=== PATIENT | female | born 1930 | race Caucasian/White ===

== ENCOUNTER 2018-02-18 02:00 | Inpatient (IN) ==
--- NOTE | 2018-02-18 02:49 | XRay Report ---
CLINICAL INFORMATION: Trauma COMPARISON: 08/20/2011 FINDINGS: Borderline cardiomegaly and tortuous thoracic aorta are unchanged. The remaining mediastinum and pulmonary vessels are normal. Lungs are clear. No effusions. IMPRESSION: No acute disease - stable Interpreted and Authenticated by: Efren Amezcua 02/18/18
--- NOTE | 2018-02-18 02:55 | XRay Report ---
CLINICAL INFORMATION: Trauma COMPARISON: 09/04/2008 FINDINGS: Comminuted basicervical fracture of the right hip is moderately impacted medially with varus angulation. The distal femoral diaphyseal fragment is displaced 1 cm anteriorly and medially. Moderate degenerative changes noted in the right hip with chondrocalcinosis in the femoral head cartilage. Left total hip prosthesis remains anatomically aligned without loosening or infection. 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 Mild degenerative changes noted in both SI joints. Moderate L4-5 and L5-S1 degenerative disc disease noted. Soft tissue swelling in the fracture site seen - as expected IMPRESSION: 1. Mildly angulated/displaced basicervical fracture - right hip. 2. Moderate right hip degeneration with chondrocalcinosis the femoral head cartilage. 3. Left total hip prosthesis remains anatomically aligned with heterotopic ossification developing in the extracapsular soft tissues. Interpreted and Authenticated by: Efren Amezcua 02/18/18
--- NOTE | 2018-02-18 02:58 | Emergency Department Note ---
Lower Extremity Injury HPI - General Chief Complaint: Extremity Injury, Lower Stated Complaint: hip pain Time Seen by Provider: 02/18/18 02:23 Source: EMS Mode of arrival: ambulatory Limitations: other - History of Present Illness HPI Narrative: Patient with a history of dementia referred over from the assisted by ambulance due to a fall from out of her bed patient has tenderness to her right hip with external rotation of the leg. Pulses are 2+ equal strong normal sensation distally unable to get a good history from the patient herself.Temperature is 97.9 pulse is 76 respirations are 19 blood pressure 192/ 78 pulse ox is 97% she rates the pain is a 5/10 - Related Data Home Medications Medication Instructions Recorded Confirmed Acetaminophen [Non-Aspirin] 325 mg PO BID 03/05/16 03/05/16 Calcium/D3/Mag Ox/Director Of Instruction/Evan/Zn 1 each PO BID 03/05/16 03/05/16 [Caltrate+D3 Plus Mineral Minis] Diclofenac 2 gm TRANSDERMA QIDP PRN 03/05/16 03/05/16 Donepezil [Aricept] 10 mg PO DAILY 03/05/16 03/05/16 Ergocalciferol (Vitamin D2) 2,000 unit PO DAILY 03/05/16 03/05/16 [Vitamin D2] Glucosamine/Chondro Dhaliwal A [Cvs 1 each PO BID 03/05/16 03/05/16 Glucosamine-Chondroitin Tb] Hydroxychloroquine [Plaquenil] 200 mg PO DAILY 03/05/16 03/05/16 Memantine HCl 10 mg PO BID 03/05/16 03/05/16 Olmesartan Medoxomil [Benicar] 20 mg PO DAILY 03/05/16 03/05/16 Omeprazole 20 mg PO AC 03/05/16 03/05/16 Raloxifene HCl [Evista] 60 mg PO DAILY 03/05/16 03/05/16 traMADol HCL [Ultram] 50 mg PO TID 03/05/16 03/05/16 traZODone HCL [Trazodone HCl] 50 mg PO HS 03/05/16 03/05/16 Previous Rx's Medication Instructions Recorded Ciprofloxacin [Cipro] 500 mg PO BID #15 tablet 03/05/16 Allergies Allergy/AdvReac Type Severity Reaction Status Date / Time Calcitonin [From Miacalcin] AdvReac Verified 09/10/16 10:16 Diclofenac AdvReac Verified 09/10/16 10:16 niacin AdvReac Verified 09/10/16 10:16 piroxicam [From Feldene] AdvReac Verified 09/10/16 10:16 Salsalate [From Disalcid] AdvReac Verified 09/10/16 10:16 sorbitol AdvReac Verified 09/10/16 10:16 Sulfa (Sulfonamide AdvReac Verified 09/10/16 10:16 Antibiotics) Sulindac [From Clinoril] AdvReac Verified 09/10/16 10:16 Review of Systems All systems ED: reviewed and negative except as stated. Constitutional: Denies: fever, chills Musculoskeletal: Reports: as per HPI, joint pain Past Medical History - Past Medical History Medical history: Reports: arthritis, dementia, hyperlipidemia, hypertension, osteoporosis, other (Lumbar spinal stenosis) Surgical history ED: Reports: hip replacement Family history: Reports: non-contributory - Social History smoking status: Former smoker Alcohol use: Reports: None Drug use: Reports: none Physical Exam Limitations: other (Has dementia) Head: atraumatic, normocephalic Eye: Present: normal appearance, PERRL ENT: normal exam, normal oropharynx Neck: Present: normal inspection, full ROM Chest: Present: normal inspection, symmetric chest wall rise. Absent: tenderness Respiratory: Present: normal lung sounds bilaterally. Absent: respiratory distress, rales/crackles, wheezes Cardiovascular: Present: regular rate, normal rhythm. Absent: bradycardia, tachycardia Abdominal: Present: soft, distention. Absent: tenderness, guarding Extremities: Present: normal inspection, full ROM. Absent: tenderness Hip/Pelvis: Present: tenderness, external rotation, shortening Upper leg: Present: normal inspection Knee: Present: normal inspection Lower leg: Present: normal inspection Back: Present: normal inspection, full ROM. Absent: tenderness, CVA tenderness (R), CVA tenderness (L) Neurological: Present: reflexes normal. Absent: motor sensory deficit Psychiatric: Present: normal affect, normal mood Skin: Present: warm, dry, intact Course Vital Signs Temperature 97.9 F 02/18/18 02:00 Pulse Rate 76 02/18/18 02:00 Respiratory Rate 19 02/18/18 02:00 Blood Pressure 192/78 02/18/18 02:00 Pulse Oximetry (%) 97 02/18/18 02:00 Temperature 97.9 F 02/18/18 02:00 Pulse Rate 76 02/18/18 02:00 Respiratory Rate 19 02/18/18 02:00 Blood Pressure 192/78 02/18/18 02:00 Pulse Oximetry (%) 97 02/18/18 02:00 Extremity Injury, Lower - MDM Narrative Medical decision making narrative: X-ray shows a right hip fracture chest x-ray is normal Dr. Estes contacted hospitalist to admit. Dr. Wesley contacted patient admitted - Lab Data Result diagrams: 02/18/18 02:45 02/18/18 02:45 Lab Results 02/18/18 Range/Units 02:45 Band Neutrophils % Not Reportable Disposition Pt seen by SOLID WASTE MANAGEMENT ENGINEER/PA only: No Clinical Impression: Fracture of hip, right, closed Disposition: Xfer As Inpt ([facility]) Condition: Fair Instructions: Hip Sprain (ED), Hip Fracture (ED) Referrals: Lucia Johnson MD [Primary Care Provider] -
[2018-02-18 03:33] LABS: Mean Cell Volume 93.8 fL (80.0-100.0); Mean Corpuscular HGB Conc 33.4 g/dL (31.0-36.0); Mean Corpuscular Hemoglobin 31.3 pg (26.0-34.0); Platelet Count 210 K/mcL (140-440); RBC 3.84 M/mcL (4.00-5.20); Red Cell Distribution Width 13.3 % (11.5-14.5)
[2018-02-18] MEDS ORDERED: ALBUTEROL SULFATE 2.5 MG/3 ML NEBULIZER NEB PRN (03:50)
[2018-02-18] MEDS ORDERED: NALOXONE HCL 0.4 MG/ML VIAL IV PRN ×2 (03:50→16:58)
[2018-02-18] MEDS ORDERED: ACETAMINOPHEN 325 MG TABLET PO PRN ×2 (03:50→17:19)
[2018-02-18] MEDS ORDERED: oxyCODONE HCL 5 MG TABLET PO PRN (03:50)
[2018-02-18] MEDS ORDERED: ONDANSETRON 4 MG/2 ML VIAL IV PRN ×3 (03:50→17:19)
[2018-02-18] MEDS ORDERED: DEXTROSE 5%-1/2NS W/20MEQ KCL 1,000 ML IV SCH (03:50)
[2018-02-18 04:00] LABS: ALT/SGPT 10 U/l (0-40); Albumin 3.6 gm/dL (3.2-5.2); Albumin/Globulin Ratio 1.3 (1.0-2.3); Alkaline Phosphatase 55 U/L (39-117); Blood Urea Nitrogen 23 mg/dl (8-23)
[2018-02-18] MEDS ORDERED: HYDROmorphone 2 MG/ML VIAL ONE (04:08)
[2018-02-18] MEDS: HYDROmorphone 2 MG/ML VIAL IV PRN ×2 (04:11→07:14)
[2018-02-18] MEDS: 0.9 % SODIUM CHLORIDE 10 ML SYRINGE IV SCH ×3 (04:13→22:04)
[2018-02-18 04:30] LABS: Eosinophils % (Manual) 1 % (0-7); Lymphocytes % 10 % (15-49); Monocytes % (Manual) 3 % (1-12); Platelet Estimate NORMAL (NORMAL); RBC Morphology NORMAL (NORMAL); Segmented Neutrophils % 86 % (38-78)
[2018-02-18 05:40] LABS: Appearance,Urine CLEAR; Bacteria,Urine 0 /hpf (0); Bilirubin,Urine NEG (NEG); Color,Urine STRAW; Glucose,Urine (UA) NEGATIVE (NEG); Leukocyte Esterase,Urine 25 /uL (NEG); Protein,Urine NEG (NEG); Specific Gravity,Urine 1.013 (1.000-1.035); Urine Blood NEG mg/dL (<0.03); Urine RBC 0 /hpf (0-1); Urine Squamous Epithelial Cell 0 /hpf (0-4); Urine WBC 0 /hpf (0-4); Urobilinogen,Urine NEG (NEG)
--- NOTE | 2018-02-18 07:46 | Internal Med History&Physical ---
Medical - H&P: [facility] Patient information: Note initiated : 02/18/18 at 7:43 am Service Date, if different from initiated Date: [] Patient: Rabia Asencio a 87 y/o F admitted on 02/18/18 for Hip Pain. Chief Complaint: [] History of present illness: Ms. Asencio is a 87 year old F with h/o dementia, [place] resident, presented to the emergency room from a [facility] after a fall. Patient is demented unable to provide any medical history. Most of the history from chart review. The patient had a mechanical fall from the bed, On presentation to the emergency room patient was hemodynamically stable. X- ray showed a fracture. We are unable to ascertain patient's effort tolerance at this point in time. Based on chart review there is no evidence of congestive heart failure. There is no medications to suggest COPD [no bronchodilators] patient likely. Labs show normal creatinine function, there is no history of diabetes. Plan for surgery today admitted to medical service ROS unobtainable: due to mental status Medical - H&P: PMH Medical history: Medical History Dementia HTN Gerd OA Pertinent family history: unable to review Social history: SNF resident Medical - H&P: Meds Home Medications Medication Instructions Recorded Confirmed Type Acetaminophen [Non-Aspirin] 650 mg PO BID 03/05/16 02/18/18 History Calcium/D3/Mag Ox/Furniture Technician/Evan/Zn 1 each PO BID 03/05/16 02/18/18 History [Caltrate+D3 Plus Mineral Minis] Glucosamine/Chondro Dhaliwal A [Cvs 3 each PO BID 03/05/16 02/18/18 History Glucosamine-Chondroitin Tb] Olmesartan Medoxomil [Benicar] 20 mg PO DAILY 03/05/16 02/18/18 History Raloxifene HCl [Evista] 60 mg PO DAILY 03/05/16 02/18/18 History traMADol HCL [Ultram] 50 mg PO BID 03/05/16 02/18/18 History traZODone HCL [Trazodone HCl] 25 mg PO HS 03/05/16 02/18/18 History Loperamide [Imodium] 2 mg PO PRN PRN 02/18/18 02/18/18 History Memantine HCl/Donepezil HCl 1 cap PO HS 02/18/18 02/18/18 History [Namzaric 21 mg-10 mg Capsule] Propylene Glycol/Peg 400/Pf 1 each OP BID 02/18/18 02/18/18 History [Systane 0.3-0.4% Eye Drops] QUEtiapine [SEROquel] 12.5 mg PO BID 02/18/18 02/18/18 History Ranitidine HCl [Acid Engineering Systems Analyst] 150 mg PO BID 02/18/18 02/18/18 History Vitamin D3 1 capsule PO DAILY 02/18/18 02/18/18 History Allergies Allergy/AdvReac Type Severity Reaction Status Date / Time Calcitonin [From Miacalcin] AdvReac Verified 09/10/16 10:16 Diclofenac AdvReac Verified 09/10/16 10:16 niacin AdvReac Verified 09/10/16 10:16 piroxicam [From Feldene] AdvReac Verified 09/10/16 10:16 Salsalate [From Disalcid] AdvReac Verified 09/10/16 10:16 sorbitol AdvReac Verified 09/10/16 10:16 Sulfa (Sulfonamide AdvReac Verified 09/10/16 10:16 Antibiotics) Sulindac [From Clinoril] AdvReac Verified 09/10/16 10:16 Medical - H&P: Exam - Constitutional Vitals: Temp Pulse Resp BP Pulse Ox 98.8 F 94 H 20 139/72 98 02/18/18 07:05 02/18/18 07:05 02/18/18 07:05 02/18/18 07:05 02/18/18 07:05 Exam: GENERAL: The patient is a well-developed, well-nourished in no apparent distress. Is alert and oriented x1. VITAL SIGNS: Reviewed and as noted elsewhere. HEENT: Head is normocephalic and atraumatic. Extraocular muscles are intact. Pupils are equal 3mm, round, and reactive to light. Nares appeared normal. Mouth appears any without lesions. Mucous membranes are dry. NECK: Normal to inspection, Supple, No lymphadenopathy or thyromegaly. LUNGS: Air entry equal on both sides, no wheezing, crackles or rhonchi noted. No accessory muscles of respiration HEART: Regular rate and rhythm normal, S1 and S2 heard, no Gallop, S3 or Rub Noted, No Gross murmur heard. ABDOMEN: Soft, nontender, and nondistended. Positive bowel sounds. No hepatosplenomegaly was noted. EXTREMITIES: No cyanosis, clubbing, rash, lesions or edema. NEUROLOGIC: Cranial nerves II through XII are grossly intact. Motor and Sensory System Grossly Intact PSYCHIATRIC: Not agitated but is Confused SKIN: No ulceration or wounds noted, No jaundice, No rash noted. Medical - H&P: Reslt - Labs CBC & Chem 7: 02/18/18 02:45 02/18/18 02:45 Labs: Short CBC 02/18/18 Range/Units 02:45 WBC 9.3 (4.5-11.0) K/mcL Hgb 12.0 (12.0-15.0) g/dL Hct 36.0 (36.0-48.0) % Plt Count 210 (140-440) K/mcL BMP 02/18/18 02:45 Sodium 138 Potassium 4.5 Chloride 103 Carbon Dioxide 23 BUN 23 Creatinine 0.9 Glucose 114 H Calcium 9.4 Liver Function 02/18/18 Range/Units 02:45 Total Bilirubin 0.3 (0.0-1.0) mg/dL AST 18 (0-37) U/l ALT 10 (0-40) U/l Alkaline Phosphatase 55 (39-117) U/L Albumin 3.6 (3.2-5.2) gm/dL Urine 02/18/18 Range/Units 04:20 Urine Color Straw Urine Appearance Clear Urine pH 6.0 (5.0-9.0) Ur Specific [place] 1.013 (1.000-1.035) Urine Protein Neg (NEG) mg/dL Urine Glucose (UA) Negative (NEG) mg/dL Medical - H&P: A/P - Narrative A/P Narrative: A/P Hip fracture- Management per surgery HTN- BP stable, resume home meds after surgery, olemsartan to be held today Preop evaluation- Limited history, but based on history and exam, pt remains high risk primary due to age, no modifiable risk factors are noted. Demetia- resume home medications, remains high risk for delirium post op DVT- SCD for now, lovenox post op DNR code status NPO diet. Medical - H&P: Qual - Stroke Symptom Onset Unknown: No - VTE Deep Vein Thrombosis/Pulmonary Embolism Present on Admission: No
[2018-02-18] MEDS: QUEtiapine 25 MG TABLET PO SCH ×2 (08:39→22:03)
--- NOTE | 2018-02-18 08:43 | Consultation ---
DATE OF CONSULTATION: 02/18/2018 HISTORY OF PRESENT ILLNESS: This is a very pleasant elderly female who was born 1930. She presents complaining of significant right lower extremity pain. She is confused on arrival and she was diagnosed by Dr. Rivero as having a right femoral neck fracture, almost down into the intertrochanteric region. The patient is unable to ambulate at the present time, but she was ambulating prior and had a same level fall. The right hip was shortened and externally rotated with good pulses on arrival. The patient's other vital signs were stable. She rated her pain approximately at 5. MEDICATIONS: 1. Acetaminophen 325 mg b.i.d. 2. Calcium with vitamin D, 1 or 2 tablets daily. 3. Diflucan 2 grams q.i.d. 4. Aricept 10 mg p.o. daily. 5. Vitamin D2 2000 units. 6. Glucosamine. 7. Plaquenil 200 mg p.o. daily. 8. Benicar 20 mg p.o. daily. 9. Omeprazole 20 mg p.o. a.c. 10. Evista 60 grams p.o. daily. 11. Ultram, or tramadol 50 mg t.i.d. and tramadol at night. ALLERGIES: SULFA MEDICATIONS, FELDENE, NIACIN, DICLOFENAC, CALCITONIN. REVIEW OF SYSTEMS: Negative for chest pain or shortness of breath. She denies fever or chills. MUSCULOSKELETAL: Reports right hip pain as noted above. PAST MEDICAL HISTORY: Arthritis, dementia, hyperlipidemia, hypertension, osteoporosis and lumbar spinal stenosis. PAST SURGERIES: Left total hip arthroplasty. FAMILY HISTORY: Noncontributory. SOCIAL HISTORY: She is a former smoker, is not currently smoking. She does not use alcohol or other drugs. PHYSICAL EXAMINATION: VITAL SIGNS: All within normal limits. Blood pressure is obviously elevated given her trauma, but temperature is 97.9, respiratory rate 16, pulse rate about 76, saturating at 97%. GENERAL: Very pleasant, demented elderly female who is thin and frail, in no acute distress. Her head is atraumatic. HEAD/NECK: She can move her neck without pain. Neck is nontender. She has false teeth that are not in. Eyes: She moves rise freely without difficulty and no deviation. She seems to hear adequately, and can swallow. LUNGS: She does have normal inspiration and expiration, normal chest wall movement. No rales or rhonchi. Normal lung sounds bilaterally. No distal rales or crackles. CARDIOVASCULAR: Regular rate and rhythm. No murmurs, rubs, or gallops. ABDOMEN: Thin, nontender and non-guarded. No rebound. EXTREMITIES: Right shortened extremity with external rotation of the foot, with no open wounds or lacerations or abrasions. No open skin wounds. Hip/pelvis: She does have pain on the right side when I palpate. There is no rotation or shortening. Knee is present without crepitance. She does not allow me to move the knee obviously. Lower extremity: She does have good capillary refill into the feet. I do not feel great pulses, but there are no open wounds. NEURO: She is moving her toes on both sides without problem. Memory is very poor and she does not even know what happened or where her pain is or which hip she broke. PSYCHIATRIC: Normal, she is demented obviously. LABORATORY STUDIES: She does have fairly normal labs with hematocrit of 35, slight elevated glucose, otherwise within normal limits. IMAGING: X-rays of her right hip demonstrate right low femoral neck fracture that extends slightly into the intertrochanteric region. It appears she has obvious osteoporosis, shortening of the right leg is quite evident with mild significant arthritis of the hip joint. She has a positioned total hip arthroplasty on her left side without fracture, trauma or dislocation. DIAGNOSIS: Right femoral neck fracture. PLAN: Treatment will be a cemented hemiarthroplasty given her age and mental conditions. RBH:tavo Job ID: [id number] Doc ID: [id number] Eran Tejada MD
[2018-02-18] MEDS ORDERED: HEPARIN 5,000 UNIT/ML VIAL SQ SCH (09:00)
[2018-02-18] MEDS ORDERED: ceFAZolin 1 GM VIAL IV SCH (15:45)
[2018-02-18] MEDS ORDERED: 0.9 % SODIUM CHLORIDE 9 ML, KETOROLAC 30 MG, ROPIVACAINE HCL/PF 49.5 ML, EPINEPHrine 0.... IJ ONE (16:44)
[2018-02-18] MEDS ORDERED: IPRATROPIUM/ALBUTEROL 3 ML AMPUL.NEB NEB PRN (16:58)
[2018-02-18] MEDS ORDERED: BENZOCAINE/MENTHOL 1 LOZENGE PO PRN ×2 (16:58→17:19)
[2018-02-18] MEDS ORDERED: FLUMAZENIL 0.1 MG/ML ML IV PRN (16:58)
[2018-02-18] MEDS ORDERED: ACETAMINOPHEN 850 MG/85 ML BOTTLE IV ONE (16:58)
[2018-02-18] MEDS ORDERED: fentaNYL 100 MCG/2 ML VIAL IV PRN (16:58)
[2018-02-18] MEDS ORDERED: LACTATED RINGERS 250 ML IV PRN (16:58)
[2018-02-18] MEDS ORDERED: METHOCARBAMOL 1,000 MG/10 ML VIAL IV PRN (16:58)
[2018-02-18] MEDS ORDERED: GENTAMICIN SULFATE 800 MG/20 ML VIAL IR ONE (17:10)
[2018-02-18] MEDS ORDERED: KETOROLAC 15 MG/ML VIAL IV PRN (17:19)
[2018-02-18] MEDS ORDERED: TEMAZEPAM 15 MG CAPSULE PO PRN (17:19)
[2018-02-18] MEDS ORDERED: TRANEXAMIC ACID 1,000 MG/10 ML VIAL IV SCH (17:19)
[2018-02-18] MEDS ORDERED: POLYETHYLENE GLYCOL 3350 17 GM PACKET PO PRN (17:19)
[2018-02-18] MEDS ORDERED: FLEETS ADULT ENEMA PR PRN (17:19)
[2018-02-18] MEDS ORDERED: HYDROmorphone 2 MG/ML VIAL IV PRN (17:19)
[2018-02-18] MEDS ORDERED: BISACODYL 10 MG SUPP.RECT PR PRN (17:19)
[2018-02-18] MEDS ORDERED: MAGNESIUM HYDROXIDE 30 ML ORAL.SUSP PO PRN (17:19)
--- NOTE | 2018-02-18 17:19 | Brief Operative Note ---
Date of procedure: 02/18/18 Pre-op diagnosis: right hip fracture intertroch Post-op diagnosis: same Procedure: right hip cemented christopher arthroplasty Grafts/Implants: Yes Anesthesia: GETA Complications: none Surgeon: Eran Tejada Lithographic Press Operator Apprentice: Ben Tan Estimated blood loss (cc): 50 Specimens Removed/Pathology: none sent Condition: stable Disposition: PACU
[2018-02-18] MEDS ORDERED: LOPERAMIDE 2 MG CAPSULE PO PRN (17:25)
--- NOTE | 2018-02-18 18:15 | XRay Report ---
CLINICAL INFORMATION: Postop right hip prostheses following hip fracture COMPARISON: Abdomen x-ray 02/18/2018 FINDINGS: Right hip prostheses anatomically aligned. Older left total hip prostheses is also anatomically aligned with heterotopic ossification in the pericapsular region. Soft tissue swelling seen over the surgical site as expected IMPRESSION: Right hip prostheses in anatomic alignment Interpreted and Authenticated by: Efren Amezcua 02/18/18
[2018-02-18] MEDS: 0.45 % SODIUM CHLORIDE 1,000 ML IV SCH (19:18)
[2018-02-18] MEDS ORDERED: SENNOSIDES 1 TABLET PO SCH (21:00)
[2018-02-18] MEDS ORDERED: Propylene Glycol/Peg 400/Pf [Systane 0.3-0.4% Eye Drops] OU SCH (21:00)
[2018-02-18] MEDS: SENNOSIDES 1 TABLET PO SCH (22:02)
[2018-02-18] MEDS: FAMOTIDINE 20 MG TABLET PO SCH (22:02)
[2018-02-18] MEDS: traZODone HCL 50 MG TABLET PO SCH (22:03)
[2018-02-18] MEDS: ASPIRIN 325 MG ENTERIC COATED TABLET PO SCH (22:03)
[2018-02-18] MEDS: CALCIUM W/VIT D3 500 MG TABLET PO SCH (22:03)
[2018-02-18] MEDS: traMADol 50 MG TABLET PO SCH (22:03)
[2018-02-18] MEDS: DOCUSATE SODIUM 100 MG CAPSULE PO SCH (22:03)
[2018-02-18] MEDS: MEMANTINE HCL PO SCH (22:04)
[2018-02-18] MEDS: DONEPEZIL HCL PO SCH (22:04)
[2018-02-19] MEDS: ceFAZolin 1 GM VIAL IV SCH ×2 (00:18→07:47)
[2018-02-19] MEDS: 0.45 % SODIUM CHLORIDE 1,000 ML IV SCH ×3 (03:49→13:26)
[2018-02-19] MEDS: 0.9 % SODIUM CHLORIDE 10 ML SYRINGE IV SCH ×3 (04:23→20:45)
--- NOTE | 2018-02-19 07:14 | Operative Note ---
DATE OF OPERATION: 02/18/2018 PREOPERATIVE DIAGNOSIS: Right intertrochanteric hip fracture. POSTOPERATIVE DIAGNOSIS: Right intertrochanteric hip fracture. PROCEDURE: Right hip fracture open reduction and internal fixation with a cemented stem. SURGEON: Eran Tejada MD MEAT CUTTER APPRENTICE: Ben Tan PA-C ANESTHESIA: General LMA anesthesia. COMPLICATIONS: None, other than the patient's fracture was much worse than what I had anticipated because of the comminution. ESTIMATED BLOOD LOSS: About 50 mL IMPLANTS: A size 6 cemented stem with a 10 mm distal centralizer, canal restrictor and neutral neck head; size 46 unipolar head with a neutral neck length. DESCRIPTION OF PROCEDURE: The patient was brought to the operating room, put to sleep with general LMA anesthesia. Once asleep, the patient had the right hip sterilely prepped and draped in the usual sterile fashion and was turned into a left lateral position with a Roverto positioner. Once in position, we then placed Ioban over the skin and placed sterile drapes. We made a superior approach to the hip and this was dissected through the fascial layer. Charnley retractor was placed and we released the superior capsule. We dislocated the fracture ball superiorly, but the neck fracture extended to the lesser trochanter. This was cut to get the ball out, but the fragments were still blocking the canal. With this, we then removed much of the neck itself. We then broached up to the size 6 on the stem after the canal finder found the canal. Once all this had been done, we then trialed a size 6 with a neutral neck length. It fit very nicely. Leg lengths seem to be symmetric and equal and very stable to exam. We cemented into place a size 6 stem with a 10 mm distal centralizer and canal restrictor and pressurized the cement. We irrigated thoroughly. We then placed the stem in about 15 to 20 degrees of anteversion. I placed a neutral neck length and a ball. It was very stable up to 80 degrees of internal rotation. We then repaired the capsule superiorly after final implants were placed, irrigated and then closed the fascial layer with #1 Stratafix. Skin was closed with Stratafix and adhesive closure. The patient tolerated this well with a sterile bandage. No complication. RBJames:tavo Job ID: [id number] Doc ID: [id number] Eran Tejada MD
[2018-02-19] MEDS: RALOXIFENE HCL 60 MG TABLET PO SCH (07:47)
[2018-02-19] MEDS: DOCUSATE SODIUM 100 MG CAPSULE PO SCH ×2 (07:47→20:44)
[2018-02-19] MEDS: GLUCOSAMINE/CHONDROITIN SULF A 1 CAP CAPSULE PO SCH ×2 (07:48→20:45)
[2018-02-19] MEDS: FAMOTIDINE 20 MG TABLET PO SCH ×2 (07:48→20:43)
[2018-02-19] MEDS: CALCIUM W/VIT D3 500 MG TABLET PO SCH ×2 (07:48→20:43)
[2018-02-19] MEDS: ASPIRIN 325 MG ENTERIC COATED TABLET PO SCH ×2 (07:48→20:43)
[2018-02-19] MEDS: OLMESARTAN MEDOXOMIL 20 MG TABLET PO SCH (07:49)
[2018-02-19] MEDS: QUEtiapine 25 MG TABLET PO SCH ×2 (07:49→20:44)
[2018-02-19] MEDS: traMADol 50 MG TABLET PO SCH (07:50)
[2018-02-19] MEDS: VITAMIN D3 1,000 UNIT TABLET PO SCH (07:50)
[2018-02-19] MEDS: CARBOXYMETHYLCELLULOSE SODIUM 1 EACH DROPER.GEL OP SCH ×2 (09:26→20:44)
--- NOTE | 2018-02-19 11:27 | Internal Med Progress Note ---
Medical - PN: Subj Patient information: Note initiated : 02/19/18 at 11:15 am Service Date, if different from initiated Date: [] Patient: Rabia Asencio a 87 y/o F admitted on 02/18/18 for Hip Pain. Chief Complaint: [] Interval history: Ms. Asencio is a 87 year old F with h/o dementia, [place] resident, presented to the emergency room from a senior care after a fall. Patient is demented unable to provide any medical history. Most of the history from chart review. The patient had a mechanical fall from the bed, On presentation to the emergency room patient was hemodynamically stable. X- ray showed a fracture. We are unable to ascertain patient's effort tolerance at this point in time. Based on chart review there is no evidence of congestive heart failure. There is no medications to suggest COPD [no bronchodilators] patient likely. Labs show normal creatinine function, there is no history of diabetes. Plan for surgery today admitted to medical service 02/19 Patient seen examined, no acute overnight issues, tolerating po well post op day 1 Ortho following medically stable. Pertinent ROS: Denies headache, dizziness Denies chest pain, palpitations Denies cough or shortness of breath Denies abdominal pain, nausea or vomiting. - Constitutional Vitals: Vital Signs Temp Pulse Resp BP Pulse Ox 98.7 F 96 H 16 104/67 92 02/19/18 06:42 02/19/18 04:00 02/19/18 06:42 02/19/18 06:42 02/19/18 06:42 Period Temp Pulse Resp BP Sys/Engle Pulse Ox Last 24 Hr 98.4 F-99.0 F 73-101 10-20 104-185/57-77 2-100 Intake and Output 02/18/18 02/19/18 02/19/18 21:59 05:59 13:59 Intake Total 1385 / 1385 1347 / 1347 200 / 200 Output Total 650 / 650 900 / 900 Balance 735 / 735 447 / 447 200 / 200 Weight 133 lb Intake & Output: Intake & Output 02/18/18 02/19/18 02/19/18 21:59 05:59 13:59 Intake Total 1385 / 1385 1347 / 1347 200 / 200 Output Total 650 / 650 900 / 900 Balance 735 / 735 447 / 447 200 / 200 Weight 133 lb Intake: IV 1385 / 1385 907 / 907 Sodium Chloride 0.45% 1,000 ml 907 / 907 @ 100 mls/hr IV .Q10H [facility] Rx#: [id number] Lactated Ringers 250 ml @ Wide 1300 / 1300 Open IV PRN PRN Rx#:[id number] Oral 440 / 440 200 / 200 Output: Urine Catheter Amount 450 / 450 900 / 900 Estimated Blood Loss 200 / 200 Other: Meal Nourishment/Supplement Breakfast Percent of Meal Consumed 100% 100% Feeding Ability Assist with Tray Set Up Assist with Tray Set Up Urine Appearance Clear Uretheral (Torres) Clear Urine Color Dark Yellow Uretheral (Torres) Bright Yellow Urine Odor Normal Uretheral (Torres) Normal Exam: Constitutional; Afebrile, cooperative, alert, not in distress. Respiratory system: Air Entry equal on both sides, No crackles or wheezing, no rhonchi. CVS- Rate rhythm regular, S1,S2 heard, no gallop, no rub. Abdomen- Soft nontender abdomen, no organomegaly, no tenderness, no guarding or rigidity, L[employer] TRUCK [employer]IVER- AOOx1, moving all extremities, no gross focal deficit noted. Medical - PN: Obj Da - Labs CBC & Chem 7: 02/19/18 04:00 02/18/18 02:45 Labs: Abnormal Lab Results 02/19/18 02/18/18 02/18/18 04:00 04:20 02:45 RBC Hct 30.8 L Seg Neutrophils % Lymphocytes % Glucose 114 H Ur Leukocyte Esterase 25 A 02/18/18 02:45 RBC 3.84 L Hct Seg Neutrophils % 86 H Lymphocytes % 10 L Glucose Ur Leukocyte Esterase Meds: Medications Acetaminophen (Tylenol) 650 mg PO Q6HP PRN PRN Reason: PAIN/FEVER > 101 Albuterol Sulfate (Ventolin) 2.5 mg NEB Q2HP PRN PRN Reason: Shortness Of Breath Artificial Tears (Refresh Celluvisc) 1 each OP BID [facility] Last Admin: 02/19/18 09:26 Dose: 1 each Aspirin (Ecotrin) 325 mg PO BID [facility] Last Admin: 02/19/18 07:48 Dose: 325 mg Bisacodyl (Dulcolax) 10 mg CA Q2-3DAYS PRN PRN Reason: Constipation Calcium/Vitamin D (Calcium W/Vit D3) 500 mg PO BID [facility] Last Admin: 02/19/18 07:48 Dose: 500 mg Docusate Sodium (Colace) 100 mg PO BID [facility] Last Admin: 02/19/18 07:47 Dose: 100 mg Famotidine (Pepcid) 20 mg PO BID [facility] Last Admin: 02/19/18 07:48 Dose: 20 mg Glucosamine/Chondroitin (Glucosamine-Chondroitin Cap) 3 cap PO BID [facility] Last Admin: 02/19/18 07:48 Dose: 3 cap Hydromorphone HCl (Dilaudid) 0 mg IV Q2HP PRN PRN Reason: PAIN LEVEL > 6 Sodium Chloride (Sodium Chloride 0.45%) 1,000 mls @ 100 mls/hr IV .Q10H [facility] Last Admin: 02/19/18 04:22 Dose: 100 mls/hr Loperamide HCl (Imodium) 2 mg PO PRN PRN PRN Reason: Diarrhea Magnesium Hydroxide (Milk Of Magnesia) 30 ml PO BIDP PRN PRN Reason: Constipation Naloxone HCl (Narcan) 0.1 mg IV Q2MIN PRN PRN Reason: Opiate Reversal Olmesartan (Benicar) 20 mg PO DAILY [facility] Last Admin: 02/19/18 07:49 Dose: 20 mg Ondansetron HCl (Zofran) 4 mg IV Q4HP PRN PRN Reason: Nausea And Vomiting Memantine Hcl/Donepezil Hcl [ Namzaric 21 Mg-10 Mg ] Capsule 1 dose PO [facility] Last Admin: 02/18/18 22:04 Dose: Not Given Polyethylene Glycol (Miralax) 17 gm PO DAILYP PRN PRN Reason: Constipation Quetiapine Fumarate (Seroquel) 12.5 mg PO BID [facility] Last Admin: 02/19/18 07:49 Dose: 12.5 mg Raloxifene HCl (Evista) 60 mg PO DAILY [facility] Last Admin: 02/19/18 07:47 Dose: 60 mg Senna (Senokot) 2 tab PO [facility] Last Admin: 02/18/18 22:02 Dose: 2 tab Sodium Biphosphate/Sodium Phosphate (Fleets Adult) 1 dose CA Q3-4DAYS PRN PRN Reason: Constipation Sodium Chloride (Saline Flush) 10 ml IV Q8 [facility] Last Admin: 02/19/18 04:23 Dose: Not Given Temazepam (Restoril) 15 mg PO HSP PRN PRN Reason: Insomnia Throat Lozenges (Cepacol) 1 lozenge PO PRN PRN PRN Reason: Sore Throat Tramadol HCl (Ultram) 50 mg PO BID [facility] Last Admin: 02/19/18 07:50 Dose: 50 mg Trazodone HCl (Desyrel) 25 mg PO HS [facility] Last Admin: 02/18/18 22:03 Dose: 25 mg Vitamin D (Vitamin D3) 2,000 unit PO DAILY [facility] Last Admin: 02/19/18 07:50 Dose: 2,000 unit Medical - PN: A/P - Time Spent With Patient Total time spent is greater than 50% in coordination of care (as documented) at patient's floor/unit and/or counseling patient: - Narrative A/P Narrative: A/P Hip fracture- Management per surgery HTN- BP stable, resume home meds. Dementia- resume home medications, remains high risk for delirium post op DVT- as per ortho protocol. DNR code status regular diet. Continue rehab. d/c once cleared by surgery. Medical - PN: Qual - Stroke Symptom Onset Unknown: No - VTE Deep Vein Thrombosis/Pulmonary Embolism Present on Admission: No
[2018-02-19] MEDS ORDERED: MIDAZOLAM 2 MG/2 ML VIAL IV ONE (16:10)
[2018-02-19] MEDS ORDERED: KETAMINE 100 MG/ML ML IV ONE (16:10)
[2018-02-19] MEDS ORDERED: PROPOFOL 200 MG/20 ML VIAL IV ONE (16:10)
[2018-02-19] MEDS ORDERED: GLYCOPYRROLATE 0.2 MG/ML VIAL IV ONE (16:10)
[2018-02-19] MEDS ORDERED: ONDANSETRON 4 MG/2 ML VIAL IV ONE (16:10)
[2018-02-19] MEDS ORDERED: DEXAMETHASONE 10 MG/ML VIAL IV ONE (16:10)
[2018-02-19] MEDS ORDERED: LIDOCAINE HCL/PF 100 MG/5 ML SYRINGE IV ONE (16:10)
[2018-02-19] MEDS ORDERED: TRANEXAMIC ACID 1,000 MG/10 ML VIAL IV ONE (16:10)
[2018-02-19] MEDS ORDERED: fentaNYL 250 MCG/5 ML VIAL IV ONE (16:10)
--- NOTE | 2018-02-19 16:15 | Orthopedic Progress Note ---
Subjective Patient information: Note initiated : 02/19/18 at 4:13 pm Service Date, if different from initiated Date: [] Patient: Rabia Asencio 87 y/o F admitted on 02/18/18 for Hip Pain. Chief Complaint: [Baseline confusion and has minimal pain unable to ambulate and unable to follow pt commands] Principal diagnosis: hip fx Objective Vital signs: Vital Signs Temp Pulse Pulse Resp BP BP Pulse Ox 02/19/18 15:28 98.8 F 20 111/54 94 02/19/18 11:33 98.1 F 16 112/63 92 02/19/18 06:42 98.7 F 16 104/67 92 02/19/18 04:00 98.5 F 96 H 20 124/75 95 02/19/18 00:00 98.4 F 90 93 H 18 109/60 97 02/18/18 22:41 94 H 111/61 99 02/18/18 21:41 100 H 118/71 95 02/18/18 20:41 88 120/63 95 02/18/18 20:11 80 134/64 100 02/18/18 19:41 78 134/65 99 02/18/18 19:26 80 142/64 98 02/18/18 19:11 88 145/60 98 02/18/18 19:09 90 78 14 98 02/18/18 18:56 73 144/70 2 L 02/18/18 18:41 85 156/74 93 02/18/18 18:26 98.4 F 78 14 132/57 98 02/18/18 18:11 98.9 F 81 15 147/68 98 02/18/18 17:56 98.6 F 96 H 19 154/68 92 02/18/18 17:41 98.9 F 101 H 19 179/76 98 02/18/18 17:36 92 H 18 185/77 100 02/18/18 17:31 89 11 L 149/65 100 02/18/18 17:26 99.0 F 90 90 10 L 120/60 98 Intake and Output 02/19/18 02/19/18 02/19/18 05:59 13:59 21:59 Intake Total 1347 / 1347 1607 / 1607 Output Total 900 / 900 600 / 600 550 / 550 Balance 447 / 447 1007 / 1007 -550 / -550 Intake: IV 907 / 907 907 / 907 Sodium Chloride 0.45% 1,000 ml 907 / 907 907 / 907 @ 100 mls/hr IV .Q10H [facility] Rx#: [id number] Oral 440 / 440 700 / 700 Output: Urine Catheter Amount 900 / 900 600 / 600 550 / 550 Other: Meal Nourishment/Supplement Breakfast Percent of Meal Consumed 100% 100% Feeding Ability Assist with Tray Set Up Assist with Tray Set Up Urine Appearance Uretheral (Torres) Clear Urine Color Bright Yellow Pale Uretheral (Torres) Bright Yellow Urine Odor Strong Strong Uretheral (Torres) Normal Weight 133 lb Patient Weight 02/20/18 05:59 Weight 133 lb Intake & Output: Intake & Output 02/19/18 02/19/18 02/19/18 05:59 13:59 21:59 Intake Total 1347 / 1347 1607 / 1607 Output Total 900 / 900 600 / 600 550 / 550 Balance 447 / 447 1007 / 1007 -550 / -550 Weight 133 lb Intake: IV 907 / 907 907 / 907 Sodium Chloride 0.45% 1,000 ml 907 / 907 907 / 907 @ 100 mls/hr IV .Q10H [facility] Rx#: [id number] Oral 440 / 440 700 / 700 Output: Urine Catheter Amount 900 / 900 600 / 600 550 / 550 Other: Meal Nourishment/Supplement Breakfast Percent of Meal Consumed 100% 100% Feeding Ability Assist with Tray Set Up Assist with Tray Set Up Urine Appearance Uretheral (Torres) Clear Urine Color Bright Yellow Pale Uretheral (Torres) Bright Yellow Urine Odor Strong Strong Uretheral (Torres) Normal - Labs CBC & BMP: 02/19/18 04:00 02/18/18 02:45 Labs: 02/19/18 02/18/18 04:00 02:45 Hgb 12.0 Hct 30.8 L 36.0
--- NOTE | 2018-02-19 16:20 | Discharge Summary ---
Ortho Discharge Plan - General - Patient Instructions Diet: Regular Diet Activity: activity as tolerated, weight bearing as tolerated Dressing Care: May shower in 2 days - Follow Up Plan Follow Up Appointments: Lucia Johnson MD [Primary Care Provider] - Disposition: er SNF Prognosis: Fair Rehab Potential: Fair I certify that the patient requires SNF services: Yes Overall status at discharge: patient is not back to baseline - Orders For Discharge Prescriptions: Docusate Sodium [Colace] 100 mg PO BID #30 cap Additional Discharge Orders: Physical Therapy at Discharge - [facility] Location: None Selected Walker Location: None Selected
[2018-02-19] MEDS: traMADol 50 MG TABLET PO PRN ×2 (17:27→20:44)
[2018-02-19] MEDS: traZODone HCL 50 MG TABLET PO SCH (20:43)
[2018-02-19] MEDS: SENNOSIDES 1 TABLET PO SCH (20:43)
[2018-02-19] MEDS: MEMANTINE HCL PO SCH (20:45)
[2018-02-19] MEDS: DONEPEZIL HCL PO SCH (20:45)
[2018-02-20] MEDS: CARBOXYMETHYLCELLULOSE SODIUM 1 EACH DROPER.GEL OP SCH ×2 (08:30→21:59)
[2018-02-20] MEDS: traMADol 50 MG TABLET PO PRN ×3 (08:36→22:09)
[2018-02-20] MEDS: DOCUSATE SODIUM 100 MG CAPSULE PO SCH ×2 (08:37→21:56)
[2018-02-20] MEDS: QUEtiapine 25 MG TABLET PO SCH ×2 (09:14→21:57)
[2018-02-20] MEDS: RALOXIFENE HCL 60 MG TABLET PO SCH (09:15)
[2018-02-20] MEDS: GLUCOSAMINE/CHONDROITIN SULF A 1 CAP CAPSULE PO SCH ×3 (09:16→21:58)
[2018-02-20] MEDS: FAMOTIDINE 20 MG TABLET PO SCH ×2 (09:16→21:56)
[2018-02-20] MEDS: VITAMIN D3 1,000 UNIT TABLET PO SCH ×2 (09:16→10:11)
[2018-02-20] MEDS: ASPIRIN 325 MG ENTERIC COATED TABLET PO SCH ×2 (09:16→21:58)
[2018-02-20] MEDS: OLMESARTAN MEDOXOMIL 20 MG TABLET PO SCH (09:17)
[2018-02-20] MEDS: 0.9 % SODIUM CHLORIDE 10 ML SYRINGE IV SCH ×3 (09:17→22:00)
[2018-02-20] MEDS: CALCIUM W/VIT D3 500 MG TABLET PO SCH ×3 (09:18→21:58)
--- NOTE | 2018-02-20 11:05 | Orthopedic Progress Note ---
Orthopedics - Auxillary Note - Subjective Patient Information: Note initiated : 02/20/18 at 11:04 am Service Date, if different from initiated Date: [] Patient: Rabia Asencio 87 y/o F admitted on 02/18/18 for Hip Pain. Chief Complaint: Moderate confusion due to hx of dementia. bandages c/d/i nvi-distal Vital Signs Temp Pulse Resp BP BP Pulse Ox 02/20/18 07:27 97.8 F 24 H 133/71 90 02/20/18 04:00 98.0 F 83 16 123/59 96 02/19/18 23:48 97.3 F 99 H 18 117/67 92 02/19/18 23:47 78 02/19/18 19:54 78 18 96 02/19/18 19:53 98.4 F 78 18 112/62 96 02/19/18 15:28 98.8 F 20 111/54 94 02/19/18 11:33 98.1 F 16 112/63 92 Intake and Output 02/19/18 02/20/18 02/20/18 21:59 05:59 13:59 Intake Total 600 / 600 Output Total 550 / 550 1200 / 1200 Balance -550 / -550 -600 / -600 Intake: Oral 600 / 600 Output: Urine Catheter Amount 550 / 550 1200 / 1200 Other: Meal Nourishment/Supplement Percent of Meal Consumed 100% Feeding Ability Assist with Tray Set Up Urine Appearance Clear Uretheral (Torres) Clear Urine Color Pale Uretheral (Torres) Bright Yellow Urine Odor Strong Uretheral (Torres) Normal Weight 133 lb s/p R christopher hip arthroplasty-stable mobilize with PT tentative discharge to SNF 02/22/18.
--- NOTE | 2018-02-20 13:06 | Internal Med Progress Note ---
Medical - PN: Subj Patient information: Note initiated : 02/20/18 at 1:04 pm Service Date, if different from initiated Date: [] Patient: Rabia Asencio a 87 y/o F admitted on 02/18/18 for Hip Pain. Chief Complaint: [] Interval history: Ms. Asencio is a 87 year old F with h/o dementia, [place] resident, presented to the emergency room from a shelter after a fall. Patient is demented unable to provide any medical history. Most of the history from chart review. The patient had a mechanical fall from the bed, On presentation to the emergency room patient was hemodynamically stable. X- ray showed a fracture. We are unable to ascertain patient's effort tolerance at this point in time. Based on chart review there is no evidence of congestive heart failure. There is no medications to suggest COPD [no bronchodilators] patient likely. Labs show normal creatinine function, there is no history of diabetes. Plan for surgery today admitted to medical service 02/19 Patient seen examined, no acute overnight issues, tolerating po well post op day 1 Ortho following medically stable. 02/20 Pt seen examined, no acute issues d/c wright continue OT/PT ortho cleared for discharge Pt awaiting placement. Pertinent ROS: Denies headache, dizziness Denies chest pain, palpitations Denies cough or shortness of breath Denies abdominal pain, nausea or vomiting. - Constitutional Vitals: Vital Signs Temp Pulse Resp BP Pulse Ox 97.6 F 83 20 128/63 94 02/20/18 12:00 02/20/18 04:00 02/20/18 12:00 02/20/18 12:00 02/20/18 12:00 Period Temp Pulse Resp BP Sys/Engle Pulse Ox Last 24 Hr 97.3 F-98.8 F 78-99 16-24 111-133/54-71 90-96 Intake and Output 02/19/18 02/20/18 02/20/18 21:59 05:59 13:59 Intake Total 600 / 600 440 / 440 Output Total 550 / 550 1200 / 1200 Balance -550 / -550 -600 / -600 440 / 440 Weight 133 lb Intake & Output: Intake & Output 02/19/18 02/20/18 02/20/18 21:59 05:59 13:59 Intake Total 600 / 600 440 / 440 Output Total 550 / 550 1200 / 1200 Balance -550 / -550 -600 / -600 440 / 440 Weight 133 lb Intake: Oral 600 / 600 440 / 440 Output: Urine Catheter Amount 550 / 550 1200 / 1200 Other: Meal Nourishment/Supplement Lunch Percent of Meal Consumed 100% 40 Feeding Ability Assist with Tray Set Up Needs Supervision Urine Appearance Clear Uretheral (Wright) Clear Clear Urine Color Pale Uretheral (Wright) Bright Yellow Bright Yellow Urine Odor Strong Uretheral (Wright) Normal Exam: Constitutional; Afebrile, not in distress. Respiratory system: Air Entry equal on both sides, No crackles or wheezing, no rhonchi. CVS- Rate rhythm regular, S1,S2 heard, no gallop, no rub. Abdomen- Soft nontender abdomen, no organomegaly, no tenderness, no guarding or rigidity, DOCK BOSS- AOOx1, moving all extremities, no gross focal deficit noted. Medical - PN: Obj Da - Labs CBC & Chem 7: 02/19/18 04:00 02/18/18 02:45 Labs: Abnormal Lab Results 02/19/18 02/18/18 02/18/18 04:00 04:20 02:45 RBC Hct 30.8 L Seg Neutrophils % Lymphocytes % Glucose 114 H Ur Leukocyte Esterase 25 A 02/18/18 02:45 RBC 3.84 L Hct Seg Neutrophils % 86 H Lymphocytes % 10 L Glucose Ur Leukocyte Esterase Meds: Medications Acetaminophen (Tylenol) 650 mg PO Q6HP PRN PRN Reason: PAIN/FEVER > 101 Last Admin: 02/20/18 11:56 Dose: 650 mg Albuterol Sulfate (Ventolin) 2.5 mg NEB Q2HP PRN PRN Reason: Shortness Of Breath Artificial Tears (Refresh Celluvisc) 1 each OP BID [facility] Last Admin: 02/20/18 08:30 Dose: 1 each Aspirin (Ecotrin) 325 mg PO BID [facility] Last Admin: 02/20/18 09:16 Dose: 325 mg Bisacodyl (Dulcolax) 10 mg CO Q2-3DAYS PRN PRN Reason: Constipation Calcium/Vitamin D (Calcium W/Vit D3) 500 mg PO BID [facility] Last Admin: 02/20/18 09:18 Dose: 500 mg Docusate Sodium (Colace) 100 mg PO BID [facility] Last Admin: 02/19/18 20:44 Dose: 100 mg Famotidine (Pepcid) 20 mg PO BID [facility] Last Admin: 02/20/18 09:16 Dose: 20 mg Glucosamine/Chondroitin (Glucosamine-Chondroitin Cap) 3 cap PO BID [facility] Last Admin: 02/20/18 09:16 Dose: 3 cap Hydromorphone HCl (Dilaudid) 0 mg IV Q2HP PRN PRN Reason: PAIN LEVEL > 6 Loperamide HCl (Imodium) 2 mg PO PRN PRN PRN Reason: Diarrhea Magnesium Hydroxide (Milk Of Magnesia) 30 ml PO BIDP PRN PRN Reason: Constipation Naloxone HCl (Narcan) 0.1 mg IV Q2MIN PRN PRN Reason: Opiate Reversal Olmesartan (Benicar) 20 mg PO DAILY [facility] Last Admin: 02/20/18 09:17 Dose: 20 mg Ondansetron HCl (Zofran) 4 mg IV Q4HP PRN PRN Reason: Nausea And Vomiting Memantine Hcl/Donepezil Hcl [ Namzaric 21 Mg-10 Mg ] Capsule 1 dose PO [facility] Last Admin: 02/19/18 20:45 Dose: Not Given Polyethylene Glycol (Miralax) 17 gm PO DAILYP PRN PRN Reason: Constipation Quetiapine Fumarate (Seroquel) 12.5 mg PO BID [facility] Last Admin: 02/20/18 09:14 Dose: 12.5 mg Raloxifene HCl (Evista) 60 mg PO DAILY [facility] Last Admin: 02/20/18 09:15 Dose: 60 mg Senna (Senokot) 2 tab PO [facility] Last Admin: 02/19/18 20:43 Dose: 2 tab Sodium Biphosphate/Sodium Phosphate (Fleets Adult) 1 dose CO Q3-4DAYS PRN PRN Reason: Constipation Sodium Chloride (Saline Flush) 10 ml IV Q8 [facility] Last Admin: 02/20/18 09:17 Dose: 10 ml Temazepam (Restoril) 15 mg PO HSP PRN PRN Reason: Insomnia Throat Lozenges (Cepacol) 1 lozenge PO PRN PRN PRN Reason: Sore Throat Tramadol HCl (Ultram) 50 - 100 mg PO Q4HP PRN PRN Reason: Pain Last Admin: 02/20/18 08:36 Dose: 50 mg Trazodone HCl (Desyrel) 25 mg PO [facility] Last Admin: 02/19/18 20:43 Dose: 25 mg Vitamin D (Vitamin D3) 2,000 unit PO DAILY [facility] Last Admin: 02/20/18 09:16 Dose: 2,000 unit Medical - PN: A/P - Time Spent With Patient Total time spent is greater than 50% in coordination of care (as documented) at patient's floor/unit and/or counseling patient: - Narrative A/P Narrative: A/P Hip fracture- Management per surgery HTN- BP stable, resumed home meds. Dementia- resumed home medications, remains high risk for delirium post op DVT- as per ortho protocol. DNR code status regular diet. Continue rehab. d/c to SNF awaited Medical - PN: Qual - Stroke Symptom Onset Unknown: No - VTE Deep Vein Thrombosis/Pulmonary Embolism Present on Admission: No
[2018-02-20] MEDS: traZODone HCL 50 MG TABLET PO SCH (21:56)
[2018-02-20] MEDS: SENNOSIDES 1 TABLET PO SCH (21:57)
[2018-02-20] MEDS: MEMANTINE HCL PO SCH (21:59)
[2018-02-20] MEDS: DONEPEZIL HCL PO SCH (21:59)
[2018-02-21] MEDS: traMADol 50 MG TABLET PO PRN ×5 (03:42→23:04)
[2018-02-21] MEDS: 0.9 % SODIUM CHLORIDE 10 ML SYRINGE IV SCH ×4 (03:51→21:06)
[2018-02-21] MEDS: QUEtiapine 25 MG TABLET PO SCH ×2 (08:21→20:57)
[2018-02-21] MEDS: OLMESARTAN MEDOXOMIL 20 MG TABLET PO SCH (08:22)
[2018-02-21] MEDS: RALOXIFENE HCL 60 MG TABLET PO SCH (08:23)
[2018-02-21] MEDS: ASPIRIN 325 MG ENTERIC COATED TABLET PO SCH ×2 (08:23→20:58)
[2018-02-21] MEDS: FAMOTIDINE 20 MG TABLET PO SCH ×2 (08:27→20:58)
[2018-02-21] MEDS: VITAMIN D3 1,000 UNIT TABLET PO SCH (08:27)
[2018-02-21] MEDS: DOCUSATE SODIUM 100 MG CAPSULE PO SCH ×2 (08:27→21:00)
[2018-02-21] MEDS: CALCIUM W/VIT D3 500 MG TABLET PO SCH ×2 (08:29→20:59)
[2018-02-21] MEDS: GLUCOSAMINE/CHONDROITIN SULF A 1 CAP CAPSULE PO SCH ×2 (08:29→21:00)
--- NOTE | 2018-02-21 08:56 | Orthopedic Progress Note ---
Subjective Patient information: Note initiated : 02/21/18 at 8:55 am Service Date, if different from initiated Date: [] Patient: Rabia Asencio 87 y/o F admitted on 02/18/18 for Hip Pain. Chief Complaint: [] Principal diagnosis: hip fx Interval history: doing ok slow to mobilize Objective Vital signs: Vital Signs Temp Pulse Pulse Resp BP BP Pulse Ox 02/21/18 06:41 97.3 F 97 H 20 119/65 92 02/21/18 03:53 98.3 F 88 16 143/72 93 02/20/18 23:15 92 H 02/20/18 23:05 98.5 F 115 H 16 156/68 93 02/20/18 19:20 98.0 F 96 H 20 129/65 93 02/20/18 18:04 96 H 02/20/18 17:20 72 02/20/18 15:56 98.6 F 24 H 109/61 96 02/20/18 12:00 97.6 F 20 128/63 94 Intake and Output 02/20/18 02/21/18 02/21/18 21:59 05:59 13:59 Intake Total 500 / 500 360 / 360 Output Total 1252 / 1252 Balance -752 / -752 359 / 359 - Intake: Oral 500 / 500 360 / 360 Output: Urine Catheter Amount 1250 / 1250 # of times incontinent of urine 2 / 2 Other: Meal Dinner Applesauce Percent of Meal Consumed 50% 50% Feeding Ability Assist with Tray Set Up Weight 134 lb Intake & Output: Intake & Output 02/20/18 02/21/18 02/21/18 21:59 05:59 13:59 Intake Total 500 / 500 360 / 360 Output Total 1252 / 1252 Balance -752 / -752 359 / 359 - Weight 134 lb Intake: Oral 500 / 500 360 / 360 Output: Urine Catheter Amount 1250 / 1250 # of times incontinent of urine 2 / 2 Other: Meal Dinner Applesauce Percent of Meal Consumed 50% 50% Feeding Ability Assist with Tray Set Up Incision: Yes healing Incision clean and dry: Yes Dressing: Yes clean, Yes dry, Yes intact Weight bearing status: full Neurological exam IM: Yes abnormal gait, Yes alert, Yes motor sensory intact, Yes neurovascular intact Extremities exam IM: No calf tenderness, Yes Foot pink and warm, Yes neurovascular intact - Labs CBC & BMP: 02/19/18 04:00 02/18/18 02:45 Labs: 02/19/18 02/18/18 04:00 02:45 Hgb 12.0 Hct 30.8 L 36.0 Assessment and Plan (1) Fracture of hip, right, closed s/p im nail right hip wbat pain control dvt prophylaxis plan rehab when medically cleared Status: Acute
[2018-02-21] MEDS: CARBOXYMETHYLCELLULOSE SODIUM 1 EACH DROPER.GEL OP SCH ×2 (09:02→21:03)
--- NOTE | 2018-02-21 13:43 | Internal Med Progress Note ---
Medical - PN: Subj Patient information: Note initiated : 02/21/18 at 1:42 pm Service Date, if different from initiated Date: [] Patient: Rabia Asencio a 87 y/o F admitted on 02/18/18 for Hip Pain. Chief Complaint: [] Interval history: Ms. Asencio is a 87 year old F with h/o dementia, [place] resident, presented to the emergency room from a custodial after a fall. Patient is demented unable to provide any medical history. Most of the history from chart review. The patient had a mechanical fall from the bed, On presentation to the emergency room patient was hemodynamically stable. X- ray showed a fracture. We are unable to ascertain patient's effort tolerance at this point in time. Based on chart review there is no evidence of congestive heart failure. There is no medications to suggest COPD [no bronchodilators] patient likely. Labs show normal creatinine function, there is no history of diabetes. Plan for surgery today admitted to medical service 02/19 Patient seen examined, no acute overnight issues, tolerating po well post op day 1 Ortho following medically stable. 02/20 Pt seen examined, no acute issues d/c wright continue OT/PT ortho cleared for discharge Pt awaiting placement. 02/21 pt seen examined, sitting in bed comfortable, no complaints confused, is aoox1 does not know she is in the hospital, had a fracture or surgery Pertinent ROS: Denies headache, dizziness Denies chest pain, palpitations Denies cough or shortness of breath Denies abdominal pain, nausea or vomiting. - Constitutional Vitals: Vital Signs Temp Pulse Resp BP Pulse Ox 97.7 F 101 H 18 115/62 93 02/21/18 11:29 02/21/18 11:29 02/21/18 11:29 02/21/18 11:29 02/21/18 11:29 Period Temp Pulse Resp BP Sys/Engle Pulse Ox Last 24 Hr 97.3 F-98.6 F 72-115 16-24 109-156/61-72 92-96 Intake and Output 02/20/18 02/21/18 02/21/18 21:59 05:59 13:59 Intake Total 500 / 500 360 / 360 200 / 200 Output Total 1252 / 1252 / 2 / 2 Balance -752 / -752 359 / 359 198 / 198 Weight 134 lb Intake & Output: Intake & Output 02/20/18 02/21/18 02/21/18 21:59 05:59 13:59 Intake Total 500 / 500 360 / 360 200 / 200 Output Total 1252 / 1252 Balance -752 / -752 359 / 359 198 / 198 Weight 134 lb Intake: Oral 500 / 500 360 / 360 200 / 200 Output: Urine Catheter Amount 1250 / 1250 # of times incontinent of urine Other: Meal Dinner Applesauce Breakfast Percent of Meal Consumed 50% 50% 100% Feeding Ability Assist with Tray Set Up Total Assistance Exam: Constitutional; Afebrile, intermittently cooperative, alert, not in distress. Respiratory system: Air Entry equal on both sides, No crackles or wheezing, no rhonchi. CVS- Rate rhythm regular, S1,S2 heard, no gallop, no rub. Abdomen- Soft nontender abdomen, no organomegaly, no tenderness, no guarding or rigidity, JACQUARD C[employer] LACER- AOOx1, moving all extremities, no gross focal deficit noted. Medical - PN: Obj Da - Labs CBC & Chem 7: 02/19/18 04:00 02/18/18 02:45 Labs: Abnormal Lab Results 02/19/18 04:00 Hct 30.8 L Meds: Medications Acetaminophen (Tylenol) 650 mg PO Q6HP PRN PRN Reason: PAIN/FEVER > 101 Last Admin: 02/20/18 11:56 Dose: 650 mg Albuterol Sulfate (Ventolin) 2.5 mg NEB Q2HP PRN PRN Reason: Shortness Of Breath Artificial Tears (Refresh Celluvisc) 1 each OP BID [facility] Last Admin: 02/21/18 09:02 Dose: 1 each Aspirin (Ecotrin) 325 mg PO BID [facility] Last Admin: 02/21/18 08:23 Dose: 325 mg Bisacodyl (Dulcolax) 10 mg [place] Q2-3DAYS PRN PRN Reason: Constipation Calcium/Vitamin D (Calcium W/Vit D3) 500 mg PO BID [facility] Last Admin: 02/21/18 08:29 Dose: 500 mg Docusate Sodium (Colace) 100 mg PO BID [facility] Last Admin: 02/21/18 08:27 Dose: 100 mg Famotidine (Pepcid) 20 mg PO BID [facility] Last Admin: 02/21/18 08:27 Dose: 20 mg Glucosamine/Chondroitin (Glucosamine-Chondroitin Cap) 3 cap PO BID [facility] Last Admin: 02/21/18 08:29 Dose: 3 cap Hydromorphone HCl (Dilaudid) 0 mg IV Q2HP PRN PRN Reason: PAIN LEVEL > 6 Loperamide HCl (Imodium) 2 mg PO PRN PRN PRN Reason: Diarrhea Magnesium Hydroxide (Milk Of Magnesia) 30 ml PO BIDP PRN PRN Reason: Constipation Last Admin: 02/21/18 13:25 Dose: 30 ml Naloxone HCl (Narcan) 0.1 mg IV Q2MIN PRN PRN Reason: Opiate Reversal Olmesartan (Benicar) 20 mg PO DAILY [facility] Last Admin: 02/21/18 08:22 Dose: 20 mg Ondansetron HCl (Zofran) 4 mg IV Q4HP PRN PRN Reason: Nausea And Vomiting Memantine Hcl/Donepezil Hcl [ Namzaric 21 Mg-10 Mg ] Capsule 1 dose PO [facility] Last Admin: 02/20/18 21:59 Dose: Not Given Polyethylene Glycol (Miralax) 17 gm PO DAILYP PRN PRN Reason: Constipation Quetiapine Fumarate (Seroquel) 12.5 mg PO BID [facility] Last Admin: 02/21/18 08:21 Dose: 12.5 mg Raloxifene HCl (Evista) 60 mg PO DAILY [facility] Last Admin: 02/21/18 08:23 Dose: 60 mg Senna (Senokot) 2 tab PO [facility] Last Admin: 02/20/18 21:57 Dose: 2 tab Sodium Biphosphate/Sodium Phosphate (Fleets Adult) 1 dose [place] Q3-4DAYS PRN PRN Reason: Constipation Sodium Chloride (Saline Flush) 10 ml IV Q8 [facility] Last Admin: 02/21/18 13:24 Dose: 10 ml Temazepam (Restoril) 15 mg PO HSP PRN PRN Reason: Insomnia Throat Lozenges (Cepacol) 1 lozenge PO PRN PRN PRN Reason: Sore Throat Tramadol HCl (Ultram) 50 - 100 mg PO Q4HP PRN PRN Reason: Pain Last Admin: 02/21/18 13:24 Dose: 100 mg Trazodone HCl (Desyrel) 25 mg PO [facility] Last Admin: 02/20/18 21:56 Dose: 25 mg Vitamin D (Vitamin D3) 2,000 unit PO DAILY [facility] Last Admin: 02/21/18 08:27 Dose: 2,000 unit Medical - PN: A/P - Time Spent With Patient Total time spent is greater than 50% in coordination of care (as documented) at patient's floor/unit and/or counseling patient: - Narrative A/P Narrative: A/P Hip fracture- Management per surgery HTN- BP stable, resumed home meds. Dementia- resumed home medications, remains high risk for delirium post op DVT- as per ortho protocol. DNR code status regular diet. Continue rehab. d/c to SNF awaited No change in plan since yesterday, awaiting for placement on thursday. Medical - PN: Qual - Stroke Symptom Onset Unknown: No - VTE Deep Vein Thrombosis/Pulmonary Embolism Present on Admission: No
--- NOTE | 2018-02-21 14:55 | Discharge Summary ---
Medical - DS: Prov Patient information: Note initiated : 02/21/18 at 2:53 pm Service Date, if different from initiated Date: [] Patient: Rabia Asencio 87 y/o F admitted on 02/18/18 for Hip Pain. Chief Complaint: [] Date of admission: 02/18/18 03:44 Discharge date: 02/22/18 Primary care physician: Lucia Johnson Consults: 02/18/18 Consult to Physician [CONS] Stat Comment: Consulting Provider: Eran Tejada Reason For Exam: Physician to Consult Consult to Physician [CONS] Stat Comment: Consulting Provider: Alex Wesley Reason For Exam: Physician to Consult Medical - DS: Meds - Discharge Medications Prescriptions: Docusate Sodium [Colace] 100 mg PO BID #30 cap Active and Home Medications: Home Medications Acetaminophen [Non-Aspirin] 650 mg PO BID 03/05/16 [History Confirmed 02/18/18 Last Taken 02/17/18 20:20] Calcium/D3/Mag Ox/Meter Tester Primary/Evan/Zn [Caltrate+D3 Plus Mineral Minis] 1 each PO BID [History Confirmed 02/18/18 Last Taken 02/17/18 16:28] Glucosamine/Chondro Dhaliwal A [[facility] Glucosamine-Chondroitin Tb] 3 each PO BID [History Confirmed 02/18/18 Last Taken 02/17/18 16:28] Olmesartan Medoxomil [Benicar] 20 mg PO DAILY 03/05/16 [History Confirmed Last Taken 02/17/18 12:01] Raloxifene HCl [Evista] 60 mg PO DAILY 03/05/16 [History Confirmed 02/18/18 Last Taken 02/17/18 12:01] traMADol HCL [Ultram] 50 mg PO BID 03/05/16 [History Confirmed 02/18/18 Last Taken 02/17/18 16:28] Loperamide [Imodium] 2 mg PO PRN PRN 02/18/18 [History Confirmed 02/18/18 Last Taken 01/13/18 16:52] Memantine HCl/Donepezil HCl [Namzaric 21 mg-10 mg Capsule] 1 cap PO HS 02/18/18 [History Confirmed 02/18/18 Last Taken 02/17/18 20:20] Propylene Glycol/Peg 400/Pf [Systane 0.3-0.4% Eye Drop] 1 each OP BID 02/18/18 [ History Confirmed 02/18/18 Last Taken 02/17/18 20:20] QUEtiapine [Seroquel] 12.5 mg PO BID 02/18/18 [History Confirmed 02/18/18 Last Taken 02/17/18 20:20] Ranitidine HCl [Acid Medical Device Sales Consultant] 150 mg PO BID 02/18/18 [History Confirmed Last Taken 02/17/18 20:20] Vitamin D3 1 capsule PO DAILY 02/18/18 [History Confirmed 02/18/18 Last Taken 12:01] Acetaminophen [Tylenol] 650 mg PO Q6HP PRN tablet 02/19/18 [Rx Last Taken Unknown] Albuterol Sulfate [Ventolin] 2.5 mg NEB Q2HP PRN ampul.neb 02/19/18 [Rx Last Taken Unknown] Aspirin [Ecotrin] 325 mg PO BID tab.ec 02/19/18 [Rx Last Taken Unknown] Bisacodyl [Dulcolax] 10 mg DC Q2-3DAYS PRN supp.rect 02/19/18 [Rx Last Taken Unknown] Docusate Sodium [Colace] 100 mg PO BID #30 cap 02/19/18 [Rx Last Taken Unknown] Home Medications Acetaminophen [Non-Aspirin] 650 mg PO BID 03/05/16 [History Confirmed 02/18/18 Last Taken 02/17/18 20:20] Calcium/D3/Mag Ox/Meter Tester Primary/Evan/Zn [Caltrate+D3 Plus Mineral Minis] 1 each PO BID [History Confirmed 02/18/18 Last Taken 02/17/18 16:28] Glucosamine/Chondro Dhaliwal A [[facility] Glucosamine-Chondroitin Tb] 3 each PO BID [History Confirmed 02/18/18 Last Taken 02/17/18 16:28] Olmesartan Medoxomil [Benicar] 20 mg PO DAILY 03/05/16 [History Confirmed Last Taken 02/17/18 12:01] Raloxifene HCl [Evista] 60 mg PO DAILY 03/05/16 [History Confirmed 02/18/18 Last Taken 02/17/18 12:01] traMADol HCL [Ultram] 50 mg PO BID 03/05/16 [History Confirmed 02/18/18 Last Taken 02/17/18 16:28] Loperamide [Imodium] 2 mg PO PRN PRN 02/18/18 [History Confirmed 02/18/18 Last Taken 01/13/18 16:52] Memantine HCl/Donepezil HCl [Namzaric 21 mg-10 mg Capsule] 1 cap PO HS 02/18/18 [History Confirmed 02/18/18 Last Taken 02/17/18 20:20] Propylene Glycol/Peg 400/Pf [Systane 0.3-0.4% Eye Drop] 1 each OP BID 02/18/18 [ History Confirmed 02/18/18 Last Taken 02/17/18 20:20] QUEtiapine [Seroquel] 12.5 mg PO BID 02/18/18 [History Confirmed 02/18/18 Last Taken 02/17/18 20:20] Ranitidine HCl [Acid Medical Device Sales Consultant] 150 mg PO BID 02/18/18 [History Confirmed Last Taken 02/17/18 20:20] Vitamin D3 1 capsule PO DAILY 02/18/18 [History Confirmed 02/18/18 Last Taken 12:01] Acetaminophen [Tylenol] 650 mg PO Q6HP PRN tablet 02/19/18 [Rx Last Taken Unknown] Albuterol Sulfate [Ventolin] 2.5 mg NEB Q2HP PRN ampul.neb 02/19/18 [Rx Last Taken Unknown] Aspirin [Ecotrin] 325 mg PO BID tab.ec 02/19/18 [Rx Last Taken Unknown] Bisacodyl [Dulcolax] 10 mg DC Q2-3DAYS PRN supp.rect 02/19/18 [Rx Last Taken Unknown] Docusate Sodium [Colace] 100 mg PO BID #30 cap 02/19/18 [Rx Last Taken Unknown] Medical - DS: Hosp Hospital course: Mr. Asencio is a 87 year old F Ms. Asencio is a 87 year old F with h/o dementia, [place] resident, presented to the emergency room from a intermediate after a fall. Patient is demented unable to provide any medical history. Most of the history from chart review. The patient had a mechanical fall from the bed, On presentation to the emergency room patient was hemodynamically stable. X- ray showed a fracture. We are unable to ascertain patient's effort tolerance at this point in time. Based on chart review there is no evidence of congestive heart failure. There is no medications to suggest COPD [no bronchodilators] patient likely. Labs show normal creatinine function, there is no history of diabetes. Plan for surgery today admitted to medical service 02/19 Patient seen examined, no acute overnight issues, tolerating po well post op day 1 Ortho following medically stable. 02/20 Pt seen examined, no acute issues d/c wright continue OT/PT ortho cleared for discharge Pt awaiting placement. 02/21 pt seen examined, sitting in bed comfortable, no complaints confused, is aoox1 does not know she is in the hospital, had a fracture or surgery 02/22 No overnight events stable for discharge. Discharge diagnosis: Hip fracture dementia hypertension - Time Spent with Patient Total time spent providing and/or coordinating discharge services: Greater than 30 minutes Medical - DS: Exam - Constitutional Vitals: Vital Signs Temp Pulse Pulse Resp BP BP Pulse Ox 02/21/18 11:29 97.7 F 101 H 18 115/62 93 02/21/18 06:41 97.3 F 97 H 20 119/65 92 02/21/18 03:53 98.3 F 88 16 143/72 93 02/20/18 23:15 92 H 02/20/18 23:05 98.5 F 115 H 16 156/68 93 02/20/18 19:20 98.0 F 96 H 20 129/65 93 02/20/18 18:04 96 H 02/20/18 17:20 72 02/20/18 15:56 98.6 F 24 H 109/61 96 Intake and Output 02/21/18 02/21/18 02/21/18 05:59 13:59 21:59 Intake Total 360 / 360 200 / 200 Output Total 2 / 2 Balance 359 / 359 198 / 198 Intake: Oral 360 / 360 200 / 200 Output: # of times incontinent of urine 2 2 Other: Meal Applesauce Breakfast Percent of Meal Consumed 50% 100% Feeding Ability Total Assistance Medical - DS: A/P - Patient/Caregiver Discharge Instructions Activity: as per physical therapy Diet: Regular Diet Prescriptions: Docusate Sodium [Colace] 100 mg PO BID #30 cap Other Amb Orders: Physical Therapy at Discharge - [facility] Location: None Selected [place] Location: None Selected - Follow up Plan Follow up with: Lucia Johnson MD [Primary Care Provider] - Eran Tejada MD [Physician] - (Call [facility] for a follow up appointment.) Disposition: [facility] SNF Prognosis: Fair Rehab Potential: Fair I certify that the patient requires SNF services: Yes Overall status at discharge: patient is progressing back to baseline Medical - DS: Qual - VTE Deep Vein Thrombosis/Pulmonary Embolism Present on Admission: No
[2018-02-21] MEDS: traZODone HCL 50 MG TABLET PO SCH (20:56)
[2018-02-21] MEDS: SENNOSIDES 1 TABLET PO SCH (21:02)
[2018-02-21] MEDS: DONEPEZIL HCL PO SCH (21:06)
[2018-02-21] MEDS: MEMANTINE HCL PO SCH (21:06)
[2018-02-22] MEDS: traMADol 50 MG TABLET PO PRN ×3 (03:54→12:45)
[2018-02-22] MEDS: 0.9 % SODIUM CHLORIDE 10 ML SYRINGE IV SCH (05:31)
[2018-02-22] MEDS: OLMESARTAN MEDOXOMIL 20 MG TABLET PO SCH (08:35)
[2018-02-22] MEDS: RALOXIFENE HCL 60 MG TABLET PO SCH (08:35)
[2018-02-22] MEDS: CALCIUM W/VIT D3 500 MG TABLET PO SCH (08:38)
[2018-02-22] MEDS: VITAMIN D3 1,000 UNIT TABLET PO SCH (08:38)
[2018-02-22] MEDS: FAMOTIDINE 20 MG TABLET PO SCH (08:39)
[2018-02-22] MEDS: QUEtiapine 25 MG TABLET PO SCH (08:39)
[2018-02-22] MEDS: DOCUSATE SODIUM 100 MG CAPSULE PO SCH (08:45)
[2018-02-22] MEDS: ASPIRIN 325 MG ENTERIC COATED TABLET PO SCH (08:45)
[2018-02-22] MEDS: CARBOXYMETHYLCELLULOSE SODIUM 1 EACH DROPER.GEL OP SCH (08:47)
[2018-02-22] MEDS: GLUCOSAMINE/CHONDROITIN SULF A 1 CAP CAPSULE PO SCH (08:47)
== END 2018-02-22 14:08 | DRG 470 ==
LOC: ED 02:00 → MEDSUR 03:44
PROVIDERS: ADMIT Internal Medicine; ATTEND Internal Medicine
PROC: HEMIHIP (2018-02-18 16:08)
CPT/HCPCS: 73502; 97162; 97167; 99231; A6213; C1776; J0131; J0171; J0690; J1100; J1170; J1580; J1885; J2001; J2250; J2405; J2795; J2800; J3010; J7050; J7120